=== PATIENT | male | born 1995 | race African-American/Black ===

== ENCOUNTER 2021-09-28 08:41 | Emergency (ER) | payer OTHER, BC ==
[~2021-09-28] VITALS: Ht 182.9 cm; Wt 77.1 kg
[2021-09-28] MEDS ORDERED: TRAM50 PO (10:07)
== END 2021-09-28 10:32 | disposition home or self-care (01) ==
LOC: ER 08:41
DX: S39.012A Strain of muscle, fascia and tendon of lower back, initial encounter (principal); S20.229A Contusion of unspecified back wall of thorax, initial encounter; V89.2XXA Person injured in unspecified motor-vehicle accident, traffic, initial encounter
CPT/HCPCS: 72070; 72100; 99283-25